=== PATIENT | male | born 1950 | race Caucasian/White ===

== ENCOUNTER 2017-01-17 09:21 | Emergency (ER) | payer MEDICARE ==
[~2017-01-17] VITALS: Ht 185.4 cm; Wt 90.0 kg
[~2017-01-17 09:21] MED LIST: ALBU1.25 NEB; CEFU500T50 PO; DIGO125T PO; DOXY100T PO; GUAI5SYR PO; LOSA25TA5 PO; MOME13HF2 INH; NICO-486 TD; PRED-402 PO; SIMV40TA3 PO; WARF5TAB PO; WARF7.5T PO; [UNRECOGNIZED DRUG - OTHER]
[2017-01-17] MEDS ORDERED: SODIUM CHLORIDE 0.9% 1,000ML IVBOLUS ONE (10:00)
[2017-01-17] MEDS ORDERED: SODIUM CHLORIDE FLUSH 10ML SYR IVF ONE (10:00)
[2017-01-17 10:15] LABS: HEMATOCRIT 40.9 % (39.2-51.8); HEMOGLOBIN 13.7 g/dL (13.7-18.0); WHITE BLOOD COUNT 11.6 x10^3/uL (3.4-10)
[2017-01-17 10:26] LABS: ASPARTATE AMINO TRANSFERASE 14 U/L (15-37); BLOOD UREA NITROGEN 23 mg/dL (7-18)
[2017-01-17 10:32] LABS: IS PT STATUS REG ER OR PRE ER? YES
[2017-01-17 10:45] LABS: DAU SCREEN DISCLAIMER
[2017-01-17 13:29] VITALS: BP 124/78
== END 2017-01-17 14:10 | disposition home or self-care (01) ==
LOC: ED 13:12
DX: I48.2 Chronic atrial fibrillation (principal); Z79.01 Long term (current) use of anticoagulants; F15.121 Other stimulant abuse with intoxication delirium; E78.5 Hyperlipidemia, unspecified; J44.9 Chronic obstructive pulmonary disease, unspecified; Z86.73 Personal history of transient ischemic attack (TIA), and cerebral infarction without residual deficits; Z95.810 Presence of automatic (implantable) cardiac defibrillator
CPT/HCPCS: 36415; 70450; 71010; 80053; 80307; 81003; 82140; 84484; 85025; 93005; 96360; 96361; 99285; J7030; G0479

== ENCOUNTER 2017-08-03 06:11 | Inpatient (IN) | payer MEDICARE ==
[~2017-08-03] VITALS: Ht 172.7 cm; Wt 104.5 kg
[2017-08-03] MEDS ORDERED: LORazepam 2 MG/ML, 1ML ONE ×2 (06:21→07:58)
[2017-08-03] MEDS ORDERED: methylPREDNISolone SOD SUCC 125 MG/2 ML IVP ONE (06:30)
[2017-08-03] MEDS ORDERED: LORazepam 2 MG/ML, 1ML IVPush ONE ×2 (06:30→08:00)
[2017-08-03] MEDS ORDERED: methylPREDNISolone SOD SUCC 125 MG/2 ML ONE (06:30)
[2017-08-03] MEDS ORDERED: SODIUM CHLORIDE FLUSH 10ML SYR IVF ONE (06:30)
[2017-08-03] MEDS ORDERED: DOXY20TA5 PO (06:37)
[2017-08-03] MEDS ORDERED: METO25TA35 PO (06:37)
[2017-08-03] MEDS ORDERED: SIMV5TAB PO (06:37)
[2017-08-03] MEDS ORDERED: TAMS0.4C2 PO (06:37)
[2017-08-03] MEDS ORDERED: OXYGEN (06:37)
[2017-08-03] MEDS ORDERED: ALBUTEROL HFA (06:37)
[2017-08-03] MEDS ORDERED: APIX2.5T PO (06:37)
[2017-08-03] MEDS ORDERED: LOSA25TA5 PO (06:37)
[2017-08-03] MEDS ORDERED: FURO-93 PO (06:37)
[2017-08-03] MEDS ORDERED: ALBUTEROL/IPRATROPIUM 2.5MG/0.5MG, 3 ML ONE (06:52)
[2017-08-03 06:53] LABS: BASOPHILS # (AUTO) 0.05 x10^3/uL (0-0.1); BASOPHILS % (AUTO) 0 % (0-1); EOSINOPHILS # (AUTO) 0.39 x10^3/uL (0-0.4); EOSINOPHILS % (AUTO) 3 % (1-7); LYMPHOCYTES # (AUTO) 1.71 x10^3/uL (1-3.4); LYMPHOCYTES % (AUTO) 15 % (22-44); MD NO; MEAN CORPUSCULAR HEMOGLOBIN 29.2 pg (27.5-34.5); MEAN CORPUSCULAR HGB CONC 32.7 g/dL (33.2-36.2); MEAN CORPUSCULAR VOLUME 89.3 fL (81-97); MEAN PLATELET VOLUME 7.2 fL (7.4-10.4); MONOCYTES # (AUTO) 0.89 x10^3/uL (0.2-0.8); MONOCYTES % (AUTO) 8 % (2-9); NEUTROPHILS # (AUTO) 8.51 x10^3/uL (1.8-6.8); NEUTROPHILS % (AUTO) 74 % (42-75); PLATELET COUNT 296 x10^3/uL (130-400); RED BLOOD COUNT 3.84 x10^6/uL (4.38-5.82); RED CELL DISTRIBUTION WIDTH 16.1 % (9.4-14.8)
[2017-08-03 07:02] LABS: ALANINE AMINOTRANSFERASE 34 U/L (12-78); ALBUMIN 2.4 g/dL (3.4-5.0); ANION GAP 6 mmol/L (5-15); CALCIUM 8.4 mg/dL (8.5-10.1); CHLORIDE 113 mmol/L (98-107); CREATININE 0.92 mg/dL (0.7-1.3)
[2017-08-03 07:06] LABS: ALKALINE PHOSPHATASE 120 U/L (45-117); TOTAL PROTEIN 5.7 g/dL (6.4-8.2); TROPONIN I < 0.015 ng/mL (0.000-0.045)
[2017-08-03] MEDS ORDERED: CEFTRIAXONE PMX 1GM/50ML 50 ML IVPB ONE (07:30)
[2017-08-03] MEDS ORDERED: CEFTRIAXONE PMX 1GM/50ML 50 ML ONE (07:58)
[2017-08-03] MEDS ORDERED: ENALAPRILAT 1.25 MG/ML, 2ML IVPush PRN (09:00)
[2017-08-03] MEDS ORDERED: POLYETHYLENE GLYCOL 17 GM PACKET PO PRN (09:00)
[2017-08-03] MEDS ORDERED: ONDANSETRON ODT 4 MG PO PRN (09:00)
[2017-08-03] MEDS ORDERED: DOXYCYCLINE 100 MG in DEXTROSE 5% 250 ML IV SCH (09:00)
[2017-08-03] MEDS ORDERED: ACETAMINOPHEN 325 MG TABLET PO PRN (09:00)
[2017-08-03] MEDS: ALBUTEROL/IPRATROPIUM 2.5MG/0.5MG, 3 ML NPPB SCH ×4 (10:30→22:39)
[2017-08-03] MEDS ORDERED: OMNIPAQUE 350 MG/ML, 75ML BOTTLE ONE (10:40)
[2017-08-03] MEDS: TAMSULOSIN 0.4 MG CAP.ER.24H PO SCH (11:22)
[2017-08-03] MEDS: METOPROLOL TARTRATE 25 MG TABLET PO SCH (11:22)
[2017-08-03] MEDS: DIGOXIN 0.125 MG TABLET PO SCH (11:22)
[2017-08-03] MEDS: LOSARTAN 25MG TABLET PO SCH (11:22)
[2017-08-03] MEDS: SENNA/DOCUSATE TABLET PO SCH (11:23)
[2017-08-03] MEDS: methylPREDNISolone SOD SUCC 125 MG/2 ML IVPush SCH ×3 (11:23→22:33)
[2017-08-03 12:29] LABS: MICROSCOPIC NOT IND
[2017-08-03 12:33] LABS: CULTURE INDICATED? NO
[2017-08-03] MEDS: DOXYCYCLINE 100 MG in DEXTROSE 5% 250 ML IV SCH (12:39)
[2017-08-03 12:53] VITALS: BP 140/77
[2017-08-03] MEDS ORDERED: SODIUM CHLORIDE 0.45% 1,000 ML IV SCH (14:00)
[2017-08-03] MEDS ORDERED: FENTANYL PF 2,500 MCG in SODIUM CHLORIDE 0.9% 200 ML IV PRN (17:30)
[2017-08-03] MEDS: CEFTRIAXONE PMX 1GM/50ML 50 ML IV SCH (21:06)
[2017-08-03] MEDS: SIMVASTATIN 5 MG TABLET PO SCH (21:07)
[2017-08-04] MEDS: DOXYCYCLINE 100 MG in DEXTROSE 5% 250 ML IV SCH ×2 (00:31→14:07)
[2017-08-04 04:00] VITALS: BP 126/62
[2017-08-04] MEDS: ALBUTEROL/IPRATROPIUM 2.5MG/0.5MG, 3 ML NPPB SCH ×6 (04:13→22:30)
[2017-08-04 04:41] LABS: BASOPHILS % (AUTO) 0 % (0-1); EOSINOPHILS % (AUTO) 0 % (1-7); LYMPHOCYTES # (AUTO) 0.81 x10^3/uL (1-3.4); LYMPHOCYTES % (AUTO) 6 % (22-44); MD NO; MEAN CORPUSCULAR HEMOGLOBIN 28.8 pg (27.5-34.5); MEAN CORPUSCULAR HGB CONC 32.5 g/dL (33.2-36.2); MEAN CORPUSCULAR VOLUME 88.8 fL (81-97); MEAN PLATELET VOLUME 7.4 fL (7.4-10.4); MONOCYTES # (AUTO) 0.48 x10^3/uL (0.2-0.8); MONOCYTES % (AUTO) 4 % (2-9); NEUTROPHILS # (AUTO) 12.58 x10^3/uL (1.8-6.8); NEUTROPHILS % (AUTO) 91 % (42-75); PLATELET COUNT 275 x10^3/uL (130-400); RED BLOOD COUNT 3.46 x10^6/uL (4.38-5.82); RED CELL DISTRIBUTION WIDTH 16.1 % (9.4-14.8)
[2017-08-04 04:52] LABS: ALBUMIN 2.3 g/dL (3.4-5.0); ANION GAP 5 mmol/L (5-15); CALCIUM 8.4 mg/dL (8.5-10.1); CHLORIDE 110 mmol/L (98-107); CREATININE 0.87 mg/dL (0.7-1.3)
[2017-08-04 04:55] LABS: ALANINE AMINOTRANSFERASE 28 U/L (12-78); ALKALINE PHOSPHATASE 109 U/L (45-117); BILIRUBIN,TOTAL 0.8 mg/dL (0.2-1.0); TOTAL PROTEIN 5.5 g/dL (6.4-8.2)
[2017-08-04] MEDS: methylPREDNISolone SOD SUCC 125 MG/2 ML IVPush SCH (05:15)
[2017-08-04] MEDS: TAMSULOSIN 0.4 MG CAP.ER.24H PO SCH (08:22)
[2017-08-04] MEDS: DIGOXIN 0.125 MG TABLET PO SCH (08:23)
[2017-08-04] MEDS: SENNA/DOCUSATE TABLET PO SCH (08:23)
[2017-08-04] MEDS: METOPROLOL TARTRATE 25 MG TABLET PO SCH (08:23)
[2017-08-04] MEDS: LOSARTAN 25MG TABLET PO SCH (08:23)
[2017-08-04 12:05] VITALS: BP 144/73
[2017-08-04] MEDS: methylPREDNISolone SOD SUCC 40 MG/ML IVPush SCH ×2 (14:07→21:37)
[2017-08-04 19:18] VITALS: BP 140/66
[2017-08-04] MEDS: CEFTRIAXONE PMX 1GM/50ML 50 ML IV SCH (21:37)
[2017-08-04] MEDS: SIMVASTATIN 5 MG TABLET PO SCH (21:37)
[2017-08-05 01:07] VITALS: BP 165/81
[2017-08-05] MEDS: ALBUTEROL/IPRATROPIUM 2.5MG/0.5MG, 3 ML NPPB SCH ×6 (01:55→22:00)
[2017-08-05] MEDS: DOXYCYCLINE 100 MG in DEXTROSE 5% 250 ML IV SCH ×2 (02:56→14:10)
[2017-08-05] MEDS: methylPREDNISolone SOD SUCC 40 MG/ML IVPush SCH ×3 (05:38→21:36)
[2017-08-05 06:57] VITALS: BP 145/86
[2017-08-05 07:11] LABS: BASOPHILS # (AUTO) 0.01 x10^3/uL (0-0.1); BASOPHILS % (AUTO) 0 % (0-1); EOSINOPHILS % (AUTO) 0 % (1-7); LYMPHOCYTES # (AUTO) 1.28 x10^3/uL (1-3.4); LYMPHOCYTES % (AUTO) 8 % (22-44); MD NO; MEAN CORPUSCULAR HEMOGLOBIN 28.6 pg (27.5-34.5); MEAN CORPUSCULAR HGB CONC 32.1 g/dL (33.2-36.2); MEAN CORPUSCULAR VOLUME 89.2 fL (81-97); MEAN PLATELET VOLUME 7.2 fL (7.4-10.4); MONOCYTES # (AUTO) 0.68 x10^3/uL (0.2-0.8); MONOCYTES % (AUTO) 4 % (2-9); NEUTROPHILS # (AUTO) 13.43 x10^3/uL (1.8-6.8); NEUTROPHILS % (AUTO) 87 % (42-75); PLATELET COUNT 322 x10^3/uL (130-400); RED BLOOD COUNT 3.63 x10^6/uL (4.38-5.82); RED CELL DISTRIBUTION WIDTH 17.5 % (9.4-14.8)
[2017-08-05 07:20] LABS: ALBUMIN 2.6 g/dL (3.4-5.0); ANION GAP 7 mmol/L (5-15); CALCIUM 8.9 mg/dL (8.5-10.1); CHLORIDE 109 mmol/L (98-107); CREATININE 0.88 mg/dL (0.7-1.3)
[2017-08-05] MEDS: LOSARTAN 25MG TABLET PO SCH (08:04)
[2017-08-05] MEDS: DIGOXIN 0.125 MG TABLET PO SCH (08:04)
[2017-08-05] MEDS: METOPROLOL TARTRATE 25 MG TABLET PO SCH (08:04)
[2017-08-05] MEDS: TAMSULOSIN 0.4 MG CAP.ER.24H PO SCH (08:04)
[2017-08-05] MEDS: SENNA/DOCUSATE TABLET PO SCH (08:04)
[2017-08-05 08:24] LABS: TOTAL PROTEIN 5.9 g/dL (6.4-8.2)
[2017-08-05] MEDS: FORMOTEROL INH SCH (12:00)
[2017-08-05] MEDS: MOMETASONE INH SCH (12:00)
[2017-08-05] MEDS: FUROSEMIDE 20 MG TABLET PO SCH (12:20)
[2017-08-05 13:23] VITALS: BP 150/79
[2017-08-05 19:16] VITALS: BP 149/87
[2017-08-05] MEDS: CEFTRIAXONE PMX 1GM/50ML 50 ML IV SCH (21:36)
[2017-08-05] MEDS: SIMVASTATIN 5 MG TABLET PO SCH (21:36)
[2017-08-05] MEDS: LORazepam 2 MG/ML, 1ML IVPush PRN (21:37)
[2017-08-06 00:22] VITALS: BP 164/77
[2017-08-06] MEDS: DOXYCYCLINE 100 MG in DEXTROSE 5% 250 ML IV SCH ×2 (02:15→14:45)
[2017-08-06] MEDS: ALBUTEROL/IPRATROPIUM 2.5MG/0.5MG, 3 ML NPPB SCH ×6 (02:35→22:00)
[2017-08-06 05:17] LABS: ALBUMIN 2.6 g/dL (3.4-5.0); ANION GAP 6 mmol/L (5-15); CALCIUM 8.9 mg/dL (8.5-10.1); CHLORIDE 108 mmol/L (98-107)
[2017-08-06 05:19] LABS: CREATININE 0.85 mg/dL (0.7-1.3)
[2017-08-06 05:25] LABS: MEAN CORPUSCULAR HEMOGLOBIN 29.6 pg (27.5-34.5); MEAN CORPUSCULAR HGB CONC 33.3 g/dL (33.2-36.2); MEAN CORPUSCULAR VOLUME 88.9 fL (81-97); MEAN PLATELET VOLUME 8.1 fL (7.4-10.4); PLATELET COUNT 256 x10^3/uL (130-400); RED BLOOD COUNT 3.52 x10^6/uL (4.38-5.82); RED CELL DISTRIBUTION WIDTH 16.9 % (9.4-14.8)
[2017-08-06] MEDS: methylPREDNISolone SOD SUCC 40 MG/ML IVPush SCH ×3 (05:30→21:20)
[2017-08-06 05:52] LABS: BASOPHILS # (AUTO) 0.06 x10^3/uL (0-0.1); BASOPHILS % (AUTO) 0 % (0-1); EOSINOPHILS % (AUTO) 0 % (1-7); LYMPHOCYTES # (AUTO) 0.96 x10^3/uL (1-3.4); LYMPHOCYTES % (AUTO) 7 % (22-44); MD SCAN; MONOCYTES # (AUTO) 0.44 x10^3/uL (0.2-0.8); MONOCYTES % (AUTO) 3 % (2-9); NEUTROPHILS # (AUTO) 12.74 x10^3/uL (1.8-6.8); NEUTROPHILS % (AUTO) 90 % (42-75)
[2017-08-06] MEDS ORDERED: GLUCAGON 1 MG IM PRN (06:00)
[2017-08-06] MEDS ORDERED: DEXTROSE 50%, 50ML SYRINGE IVPush PRN (06:00)
[2017-08-06] MEDS ORDERED: DEXTROSE 4 GM TAB.CHEW PO PRN (06:00)
[2017-08-06 06:24] LABS: HEMOGLOBIN A1C 6.9 % (4.2-6.3)
[2017-08-06 06:49] VITALS: BP 166/89
[2017-08-06] MEDS: LOSARTAN 25MG TABLET PO SCH (08:46)
[2017-08-06] MEDS: INSULIN LISPRO 100 UNITS/ML, PEN SQ-INSULIN SCH ×4 (08:46→21:35)
[2017-08-06] MEDS: APIXABAN 2.5 MG TABLET PO SCH ×2 (08:46→21:21)
[2017-08-06] MEDS: TAMSULOSIN 0.4 MG CAP.ER.24H PO SCH (08:46)
[2017-08-06] MEDS: FUROSEMIDE 20 MG TABLET PO SCH (08:46)
[2017-08-06] MEDS: SENNA/DOCUSATE TABLET PO SCH (08:47)
[2017-08-06] MEDS: METOPROLOL TARTRATE 25 MG TABLET PO SCH (08:47)
[2017-08-06] MEDS: DIGOXIN 0.125 MG TABLET PO SCH (08:47)
[2017-08-06] MEDS: SODIUM CHLORIDE FLUSH 10ML SYR IVF SCH ×2 (08:48→21:00)
[2017-08-06] MEDS: FORMOTEROL INH SCH (09:00)
[2017-08-06] MEDS: MOMETASONE INH SCH (09:00)
[2017-08-06 12:36] VITALS: BP 157/83
[2017-08-06 19:01] VITALS: BP 144/79
[2017-08-06] MEDS: CEFTRIAXONE PMX 1GM/50ML 50 ML IV SCH (21:21)
[2017-08-06] MEDS: SIMVASTATIN 5 MG TABLET PO SCH (21:21)
[2017-08-07 00:46] VITALS: BP 155/108
[2017-08-07] MEDS: DOXYCYCLINE 100 MG in DEXTROSE 5% 250 ML IV SCH (01:29)
[2017-08-07] MEDS: methylPREDNISolone SOD SUCC 40 MG/ML IVPush SCH (05:11)
[2017-08-07 05:14] LABS: MEAN CORPUSCULAR HEMOGLOBIN 29.3 pg (27.5-34.5); MEAN CORPUSCULAR HGB CONC 32.8 g/dL (33.2-36.2); MEAN CORPUSCULAR VOLUME 89.4 fL (81-97); MEAN PLATELET VOLUME 7.6 fL (7.4-10.4); PLATELET COUNT 307 x10^3/uL (130-400); RED BLOOD COUNT 3.77 x10^6/uL (4.38-5.82)
[2017-08-07 05:15] LABS: ALBUMIN 2.6 g/dL (3.4-5.0); ANION GAP 6 mmol/L (5-15); CALCIUM 8.7 mg/dL (8.5-10.1); CHLORIDE 105 mmol/L (98-107)
[2017-08-07 05:18] LABS: CREATININE 1.02 mg/dL (0.7-1.3)
[2017-08-07 05:39] LABS: MD YES
[2017-08-07 05:41] LABS: ANISOCYTOSIS 1+; BAND#(MANUAL) 0.26 x10^3/uL; BANDS%(MANUAL) 2 % (0-7); LYMPHS% (MANUAL) 7 % (22-44); MONOS#(MANUAL) 0.77 x10^3/uL (0.3-2.7); MONOS% (MANUAL) 6 % (2-9); MYELOCYTES# (MANUAL) 0.13 x10^3/uL (0-0); MYELOCYTES% (MANUAL) 1 % (0-0); OVALOCYTES 1+; POLYCHROMASIA 1+; SEG#(MANUAL) 10.84 x10^3/uL (1.8-6.8); SEGS% (MANUAL) 84 % (42-75)
[2017-08-07 05:42] LABS: <PLATELET ESTIMATE> ADEQUATE; <PLT MORPHOLOGY> NORMAL PLT MORPH
[2017-08-07 05:53] LABS: BASOPHILS % (AUTO) 0 % (0-1); EOSINOPHILS % (AUTO) 0 % (1-7); LYMPHOCYTES # (AUTO) 1.16 x10^3/uL (1-3.4); LYMPHOCYTES % (AUTO) 9 % (22-44); MONOCYTES # (AUTO) 0.86 x10^3/uL (0.2-0.8); MONOCYTES % (AUTO) 7 % (2-9); NEUTROPHILS # (AUTO) 10.91 x10^3/uL (1.8-6.8); NEUTROPHILS % (AUTO) 84 % (42-75)
[2017-08-07] MEDS: ALBUTEROL/IPRATROPIUM 2.5MG/0.5MG, 3 ML NPPB SCH ×2 (06:00→10:00)
[2017-08-07 06:56] VITALS: BP 163/86
[2017-08-07] MEDS: LORazepam 2 MG/ML, 1ML IVPush PRN (08:20)
[2017-08-07] MEDS: FUROSEMIDE 20 MG TABLET PO SCH (08:21)
[2017-08-07] MEDS: TAMSULOSIN 0.4 MG CAP.ER.24H PO SCH (08:22)
[2017-08-07] MEDS: APIXABAN 2.5 MG TABLET PO SCH (08:22)
[2017-08-07] MEDS: DIGOXIN 0.125 MG TABLET PO SCH (08:22)
[2017-08-07] MEDS: SODIUM CHLORIDE FLUSH 10ML SYR IVF SCH (08:23)
[2017-08-07] MEDS: METOPROLOL TARTRATE 25 MG TABLET PO SCH (08:28)
[2017-08-07] MEDS: LOSARTAN 25MG TABLET PO SCH (08:29)
[2017-08-07] MEDS: MOMETASONE INH SCH (08:33)
[2017-08-07] MEDS: INSULIN LISPRO 100 UNITS/ML, PEN SQ-INSULIN SCH (08:33)
[2017-08-07] MEDS: FORMOTEROL INH SCH (08:33)
[2017-08-07] MEDS: SENNA/DOCUSATE TABLET PO SCH (08:34)
== END 2017-08-07 12:16 | disposition left against medical advice (07) | DRG 871 ==
LOC: ED 07:25 → CCU 07:26 → ED 08:10 → 3NE 08-04 11:39
PROVIDERS: ADMIT Internal Medicine; ATTEND Internal Medicine
PROC: 0W9B3ZZ Drainage of Left Pleural Cavity, Percutaneous Approach (ICD-10-PCS; principal; 2017-08-03)
PROC: 5A09357 Assistance with Respiratory Ventilation, Less than 24 Consecutive Hours, Continuous Positive Airway Pressure (ICD-10-PCS; 2017-08-03)
DX: A41.9 Sepsis, unspecified organism (principal); J96.21 Acute and chronic respiratory failure with hypoxia; G93.41 Metabolic encephalopathy; J15.9 Unspecified bacterial pneumonia; J90 Pleural effusion, not elsewhere classified; J44.1 Chronic obstructive pulmonary disease with (acute) exacerbation; D68.69 Other thrombophilia; I42.9 Cardiomyopathy, unspecified; J44.0 Chronic obstructive pulmonary disease with (acute) lower respiratory infection; J98.11 Atelectasis; I50.9 Heart failure, unspecified; E78.5 Hyperlipidemia, unspecified; D64.9 Anemia, unspecified; E11.9 Type 2 diabetes mellitus without complications; I11.0 Hypertensive heart disease with heart failure; I34.0 Nonrheumatic mitral (valve) insufficiency; I48.2 Chronic atrial fibrillation; N40.0 Benign prostatic hyperplasia without lower urinary tract symptoms; R65.20 Severe sepsis without septic shock; F17.200 Nicotine dependence, unspecified, uncomplicated; Z79.01 Long term (current) use of anticoagulants; Z82.49 Family history of ischemic heart disease and other diseases of the circulatory system; Z86.73 Personal history of transient ischemic attack (TIA), and cerebral infarction without residual deficits; Z95.810 Presence of automatic (implantable) cardiac defibrillator; Z99.81 Dependence on supplemental oxygen
CPT/HCPCS: 32555; 36415; 36600; 70450; 71045; 71260; 80048; 80053; 80162; 81003; 82040; 82042; 82803; 82945; 82962; 83036; 83605; 83615; 83986; 84155; 84157; 84484; 85025; 87040; 87070; 87081; 87205; 88112; 88305; 89051; 93005; 93306; 94640; 94660; 96365; 96375; 96376; J0696; J7060; J7620; Q9967; J1815; J2060; J2920; J2930

== ENCOUNTER 2017-12-29 13:58 | Inpatient (IN) | payer MEDICAID, MEDICARE ==
[~2017-12-29] VITALS: Ht 177.8 cm; Wt 90.1 kg
[~2017-12-29 13:58] MED LIST changes: +ALBUTEROL HFA; +APIX2.5T PO; +CEFD300C37 PO; +DOXY20TA5 PO; +FURO-93 PO; -LOSA25TA5 PO; +LOSA25TA6 PO; +METO25TA35 PO; +OXYGEN; +PRED20TA PO; +SIMV5TAB PO; +TAMS0.4C2 PO
[2017-12-29 14:29] LABS: BASOPHILS # (AUTO) 0.04 x10^3/uL (0-0.1); BASOPHILS % (AUTO) 0 % (0-1); EOSINOPHILS # (AUTO) 0.14 x10^3/uL (0-0.4); EOSINOPHILS % (AUTO) 1 % (1-7); LYMPHOCYTES % (AUTO) 22 % (22-44); MD NO; MEAN CORPUSCULAR HEMOGLOBIN 29.2 pg (27.5-34.5); MEAN CORPUSCULAR HGB CONC 33.3 g/dL (33.2-36.2); MEAN CORPUSCULAR VOLUME 87.7 fL (81-97); MEAN PLATELET VOLUME 8.6 fL (7.4-10.4); MONOCYTES # (AUTO) 1.04 x10^3/uL (0.2-0.8); MONOCYTES % (AUTO) 8 % (2-9); NEUTROPHILS # (AUTO) 8.67 x10^3/uL (1.8-6.8); NEUTROPHILS % (AUTO) 68 % (42-75); PLATELET COUNT 175 x10^3/uL (130-400); RED BLOOD COUNT 5.32 x10^6/uL (4.38-5.82); RED CELL DISTRIBUTION WIDTH 15.4 % (9.4-14.8)
[2017-12-29 14:41] LABS: ALBUMIN 3.7 g/dL (3.4-5.0); ANION GAP 7 mmol/L (5-15); CALCIUM 8.8 mg/dL (8.5-10.1); CHLORIDE 109 mmol/L (98-107)
[2017-12-29] MEDS ORDERED: LORazepam 2 MG/ML, 1ML ONE (14:56)
[2017-12-29] MEDS ORDERED: methylPREDNISolone SOD SUCC 125 MG/2 ML ONE (14:57)
[2017-12-29] MEDS ORDERED: SODIUM CHLORIDE FLUSH 10ML SYR IVF ONE (15:00)
[2017-12-29] MEDS ORDERED: LORazepam 2 MG/ML, 1ML IVPush ONE (15:00)
[2017-12-29] MEDS ORDERED: methylPREDNISolone SOD SUCC 125 MG/2 ML IVP ONE (15:00)
[2017-12-29] MEDS ORDERED: ALBUTEROL/IPRATROPIUM 2.5MG/0.5MG, 3 ML ONE (15:09)
[2017-12-29] MEDS ORDERED: AZITHROMYCIN 500 MG in SODIUM CHLORIDE 0.9% 250 ML IV ONE (16:00)
[2017-12-29] MEDS ORDERED: MOMETASONE INH SCH (16:30)
[2017-12-29] MEDS ORDERED: TEMPLATE NON-FORMULARY MED. (Albuterol Sulfate (Albuterol Sulfate**) 1 VIAL) NEB PRN (16:30)
[2017-12-29] MEDS ORDERED: morphine SULFATE 10 MG/ML, 1ML IVPush PRN (16:30)
[2017-12-29] MEDS ORDERED: ACETAMINOPHEN 325 MG TABLET PO PRN (16:30)
[2017-12-29] MEDS ORDERED: FORMOTEROL INH SCH (16:30)
[2017-12-29] MEDS: SODIUM CHLORIDE 0.9% 1,000 ML IV SCH (17:40)
[2017-12-29] MEDS: ALBUTEROL/IPRATROPIUM 2.5MG/0.5MG, 3 ML NPPB SCH ×2 (19:10→22:00)
[2017-12-29 19:12] VITALS: BP 128/66
[2017-12-29] MEDS ORDERED: SIMVASTATIN 5 MG TABLET PO SCH (21:00)
[2017-12-29] MEDS: methylPREDNISolone SOD SUCC 125 MG/2 ML IVPush SCH (21:39)
[2017-12-29] MEDS: APIXABAN 2.5 MG TABLET PO SCH (21:39)
[2017-12-30 01:15] VITALS: BP 134/72
[2017-12-30] MEDS: methylPREDNISolone SOD SUCC 125 MG/2 ML IVPush SCH ×2 (03:52→09:14)
[2017-12-30 05:00] LABS: RAPID INFLUENZA A Negative (Negative); RAPID INFLUENZA B Negative (Negative)
[2017-12-30] MEDS: SODIUM CHLORIDE 0.9% 1,000 ML IV SCH (05:35)
[2017-12-30] MEDS: ALBUTEROL/IPRATROPIUM 2.5MG/0.5MG, 3 ML NPPB SCH (07:13)
[2017-12-30 07:33] VITALS: BP 156/71
[2017-12-30] MEDS ORDERED: METH4TAB2 PO (08:39)
[2017-12-30] MEDS ORDERED: LOSARTAN 25MG TABLET PO SCH (09:00)
[2017-12-30] MEDS ORDERED: DIGOXIN 0.125 MG TABLET PO SCH (09:00)
[2017-12-30] MEDS ORDERED: METOPROLOL TARTRATE 25 MG TABLET PO SCH (09:00)
[2017-12-30] MEDS ORDERED: FUROSEMIDE 20 MG TABLET PO SCH (09:00)
[2017-12-30] MEDS ORDERED: TAMSULOSIN 0.4 MG CAP.ER.24H PO SCH (09:00)
[2017-12-30] MEDS: APIXABAN 2.5 MG TABLET PO SCH (09:14)
== END 2017-12-30 11:00 | disposition home or self-care (01) | DRG 189 ==
LOC: ED 15:45 → EDIP 15:53 → ED 16:07 → SUATTDRO 16:14 → 3NE 16:31 → DCLOUNGE 12-30 10:20
PROVIDERS: ADMIT Internal Medicine; ATTEND Internal Medicine
DX: J96.21 Acute and chronic respiratory failure with hypoxia (principal); J98.11 Atelectasis; D68.69 Other thrombophilia; I50.42 Chronic combined systolic (congestive) and diastolic (congestive) heart failure; J44.1 Chronic obstructive pulmonary disease with (acute) exacerbation; I48.2 Chronic atrial fibrillation; F17.210 Nicotine dependence, cigarettes, uncomplicated; J44.9 Chronic obstructive pulmonary disease, unspecified; Z86.73 Personal history of transient ischemic attack (TIA), and cerebral infarction without residual deficits; N40.0 Benign prostatic hyperplasia without lower urinary tract symptoms; Z82.49 Family history of ischemic heart disease and other diseases of the circulatory system; Z99.81 Dependence on supplemental oxygen; Z95.810 Presence of automatic (implantable) cardiac defibrillator
CPT/HCPCS: 36415; 71045; 80048; 82040; 83880; 85025; 87400; 93005; 94640; 96374; 96375; 99291; G0378; J0456; J7620; J2060; J2930; J7030; J7050

== ENCOUNTER 2018-04-17 19:31 | Inpatient (IN) | payer MEDICARE ==
[~2018-04-17] VITALS: Ht 177.8 cm; Wt 101.2 kg
[~2018-04-17 19:31] MED LIST changes: +LOSA25TA25 PO; -LOSA25TA6 PO; +METH4TAB2 PO
--- NOTE | 2018-04-17 20:00 | NUR ---
PT PLACED ON HEART MONITOR, BP CUFF, PULSE OX. PT IN NAD AT THIS TIME, ABLE TO SPEAK IN FULL SENTENCES. CALL LIGHT WITHIN REACH.
[2018-04-17] MEDS ORDERED: methylPREDNISolone SOD SUCC 125 MG/2 ML IVP ONE (21:00)
[2018-04-17] MEDS ORDERED: ALBUTEROL/IPRATROPIUM 2.5MG/0.5MG, 3 ML NPPB SCH (21:00)
[2018-04-17] MEDS ORDERED: ALBUTEROL SULFATE 2.5 MG/3 ML ONE (21:03)
[2018-04-17] MEDS ORDERED: methylPREDNISolone SOD SUCC 125 MG/2 ML ONE (21:06)
--- NOTE | 2018-04-17 21:13 | NUR ---
PT BACK FROM XRAY. PT MEDICATED PER ERP ORDER. VSS AT THIS TIME.
[2018-04-17] MEDS ORDERED: ALBUTEROL SULFATE 2.5 MG/3 ML NPPB PRN (21:30)
[2018-04-17 21:34] LABS: MEAN CORPUSCULAR HEMOGLOBIN 30.2 pg (27.5-34.5); MEAN CORPUSCULAR HGB CONC 33.4 g/dL (33.2-36.2); MEAN CORPUSCULAR VOLUME 90.5 fL (81-97); MEAN PLATELET VOLUME 8.3 fL (7.4-10.4); PLATELET COUNT 215 x10^3/uL (130-400); RED BLOOD COUNT 4.93 x10^6/uL (4.38-5.82); RED CELL DISTRIBUTION WIDTH 14.3 % (9.4-14.8)
[2018-04-17 21:41] LABS: MD YES
[2018-04-17 21:43] LABS: ANION GAP 7 mmol/L (5-15); CALCIUM 8.9 mg/dL (8.5-10.1); CHLORIDE 112 mmol/L (98-107)
[2018-04-17 21:48] LABS: CREATININE 1.08 mg/dL (0.7-1.3)
--- NOTE | 2018-04-17 21:59 | NUR ---
LAB IN TO DRAW BC X 2. ANTIBIOTICS ORDERED.
[2018-04-17] MEDS ORDERED: AZITHROMYCIN 500 MG in SODIUM CHLORIDE 0.9% 250 ML IV ONE (22:00)
[2018-04-17] MEDS ORDERED: CEFTRIAXONE PMX 1GM/50ML 50 ML IV ONE (22:00)
[2018-04-17] MEDS ORDERED: CEFTRIAXONE PMX 1GM/50ML 50 ML ONE (22:19)
--- NOTE | 2018-04-17 22:25 | NUR ---
ANTIBIOTIC INFUSING AFTER VERIFICATION OF BC X 2 DRAWN PRIOR. PT GIVEN SNACK PER REQUEST AFTER OK FROM ERP. VSS, UPDATED IN COMPUTER. MED REC COMPLETED.
[2018-04-17 22:38] LABS: BAND#(MANUAL) 0.15 x10^3/uL; BANDS%(MANUAL) 1 % (0-7); EOS#(MANUAL) 0.29 x10^3/uL (0.0-0.4); EOS% (MANUAL) 2 % (1-7); LYMPH#(MANUAL) 3.65 x10^3/uL (1-3.4); LYMPHS% (MANUAL) 25 % (22-44); MONOS#(MANUAL) 1.61 x10^3/uL (0.3-2.7); MONOS% (MANUAL) 11 % (2-9); REACTIVE LYMPHS # (MANUAL) 0.44 x10^3/uL (0-0); REACTIVE LYMPHS % (MANUAL) 3 % (0-0); SEG#(MANUAL) 8.47 x10^3/uL (1.8-6.8); SEGS% (MANUAL) 58 % (42-75)
[2018-04-17 22:39] LABS: ANISOCYTOSIS 1+
[2018-04-17 22:40] LABS: <PLATELET ESTIMATE> ADEQUATE; <PLT MORPHOLOGY> NORMAL PLT MORPH; OVALOCYTES 1+; POLYCHROMASIA 1+
--- NOTE | 2018-04-17 23:15 | NUR ---
REPORT TO JEFFREY CHURCH.
[2018-04-17] MEDS ORDERED: SODIUM CHLORIDE FLUSH 10ML SYR IVF PRN (23:30)
--- NOTE | 2018-04-17 23:30 | NUR ---
REPORT FROM RANJIT PEREYRA. SECOND ABX INITIATED. BC X2 DRAWN PRIOR TO ADMIN. BP/SPO2/ECG MONITORING IN PLACE. NSR ON MONITOR. PT ANXIOUS, INCREASED RR W/ FORCED INSPIRATION. PT TALKATIVE, REPORTS 'THIS IS NORMAL'. SPO2 >90% ON BASELINE 4L O2 BY NC.
[2018-04-18] MEDS ORDERED: ACETAMINOPHEN 325 MG TABLET PO PRN
[2018-04-18] MEDS ORDERED: hydrALAzine 20 MG/ML, 1ML IVPush PRN
[2018-04-18 00:25] VITALS: BP 122/61
[2018-04-18 00:40] LABS: TROPONIN I < 0.015 ng/mL (0.000-0.045)
[2018-04-18 01:13] VITALS: BP 137/77
[2018-04-18 01:43] LABS: BASOPHILS # (AUTO) 0.05 x10^3/uL (0-0.1); BASOPHILS % (AUTO) 0 % (0-1); EOSINOPHILS # (AUTO) 0.02 x10^3/uL (0-0.4); EOSINOPHILS % (AUTO) 0 % (1-7); LYMPHOCYTES # (AUTO) 1.02 x10^3/uL (1-3.4); LYMPHOCYTES % (AUTO) 8 % (22-44); MD NO; MEAN CORPUSCULAR HEMOGLOBIN 30.2 pg (27.5-34.5); MEAN CORPUSCULAR HGB CONC 33.3 g/dL (33.2-36.2); MEAN CORPUSCULAR VOLUME 90.5 fL (81-97); MEAN PLATELET VOLUME 8.4 fL (7.4-10.4); MONOCYTES # (AUTO) 0.19 x10^3/uL (0.2-0.8); MONOCYTES % (AUTO) 1 % (2-9); NEUTROPHILS % (AUTO) 90 % (42-75); PLATELET COUNT 196 x10^3/uL (130-400); RED BLOOD COUNT 4.79 x10^6/uL (4.38-5.82); RED CELL DISTRIBUTION WIDTH 14.5 % (9.4-14.8)
[2018-04-18 01:54] LABS: ANION GAP 7 mmol/L (5-15); CHLORIDE 109 mmol/L (98-107); CREATININE 1.27 mg/dL (0.7-1.3)
[2018-04-18] MEDS: methylPREDNISolone SOD SUCC 40 MG/ML IVPush SCH ×5 (02:02→23:31)
[2018-04-18] MEDS: LEVOFLOXACIN/PMX 750MG/150ML 150 ML IV SCH ×2 (02:03→23:31)
[2018-04-18] MEDS: ALBUTEROL/IPRATROPIUM 2.5MG/0.5MG, 3 ML NPPB SCH ×3 (07:04→19:08)
[2018-04-18 07:51] LABS: ALBUMIN 3.7 g/dL (3.4-5.0); ANION GAP 7 mmol/L (5-15); CALCIUM 8.8 mg/dL (8.5-10.1); CHLORIDE 109 mmol/L (98-107); CREATININE 1.16 mg/dL (0.7-1.3)
[2018-04-18] MEDS: METOPROLOL TARTRATE 25 MG TABLET PO SCH (08:12)
[2018-04-18] MEDS: APIXABAN 2.5 MG TABLET PO SCH ×2 (08:12→20:35)
[2018-04-18] MEDS: LOSARTAN 25MG TABLET PO SCH (08:12)
[2018-04-18] MEDS: TAMSULOSIN 0.4 MG CAP.ER.24H PO SCH (08:12)
[2018-04-18] MEDS: FUROSEMIDE 20 MG/2 ML IV SCH ×2 (08:12→18:22)
[2018-04-18] MEDS: DIGOXIN 0.125 MG TABLET PO SCH (08:12)
[2018-04-18 08:35] VITALS: BP 130/66
[2018-04-18 13:44] VITALS: BP 131/64
[2018-04-18] MEDS ORDERED: POLYETHYLENE GLYCOL 17 GM PACKET PO PRN (16:30)
[2018-04-18] MEDS: SODIUM CHLORIDE 0.9% 1,000 ML IV SCH (18:22)
[2018-04-18 19:45] VITALS: BP 137/57
[2018-04-18] MEDS: SIMVASTATIN 5 MG TABLET PO SCH (20:35)
[2018-04-19 01:35] VITALS: BP 137/74
[2018-04-19 05:10] LABS: BASOPHILS # (AUTO) 0.07 x10^3/uL (0-0.1); BASOPHILS % (AUTO) 0 % (0-1); EOSINOPHILS % (AUTO) 0 % (1-7); LYMPHOCYTES # (AUTO) 1.34 x10^3/uL (1-3.4); LYMPHOCYTES % (AUTO) 8 % (22-44); MD NO; MEAN CORPUSCULAR HEMOGLOBIN 29.8 pg (27.5-34.5); MEAN CORPUSCULAR HGB CONC 32.8 g/dL (33.2-36.2); MEAN PLATELET VOLUME 8.3 fL (7.4-10.4); MONOCYTES # (AUTO) 0.68 x10^3/uL (0.2-0.8); MONOCYTES % (AUTO) 4 % (2-9); NEUTROPHILS # (AUTO) 15.83 x10^3/uL (1.8-6.8); NEUTROPHILS % (AUTO) 88 % (42-75); PLATELET COUNT 187 x10^3/uL (130-400); RED BLOOD COUNT 4.54 x10^6/uL (4.38-5.82); RED CELL DISTRIBUTION WIDTH 14.4 % (9.4-14.8)
[2018-04-19 05:18] LABS: ALBUMIN 3.5 g/dL (3.4-5.0); ANION GAP 7 mmol/L (5-15); CALCIUM 8.7 mg/dL (8.5-10.1); CHLORIDE 108 mmol/L (98-107); CREATININE 1.02 mg/dL (0.7-1.3)
[2018-04-19] MEDS: methylPREDNISolone SOD SUCC 40 MG/ML IVPush SCH (05:44)
[2018-04-19] MEDS: ALBUTEROL/IPRATROPIUM 2.5MG/0.5MG, 3 ML NPPB SCH ×4 (06:35→20:20)
[2018-04-19 07:14] VITALS: BP 125/53
[2018-04-19] MEDS: SODIUM CHLORIDE 0.9% 1,000 ML IV SCH ×2 (07:28→17:14)
[2018-04-19] MEDS: FUROSEMIDE 20 MG/2 ML IV SCH (07:40)
[2018-04-19] MEDS: LOSARTAN 25MG TABLET PO SCH (08:42)
[2018-04-19] MEDS: TAMSULOSIN 0.4 MG CAP.ER.24H PO SCH (08:43)
[2018-04-19] MEDS: DIGOXIN 0.125 MG TABLET PO SCH (08:43)
[2018-04-19] MEDS: APIXABAN 2.5 MG TABLET PO SCH ×2 (08:43→20:46)
[2018-04-19] MEDS: METOPROLOL TARTRATE 25 MG TABLET PO SCH (08:43)
[2018-04-19 14:37] VITALS: BP 101/49
[2018-04-19] MEDS: SIMVASTATIN 5 MG TABLET PO SCH (20:46)
[2018-04-19 21:09] VITALS: BP 142/64
[2018-04-19] MEDS: LEVOFLOXACIN/PMX 750MG/150ML 150 ML IV SCH (23:55)
[2018-04-20] MEDS: SODIUM CHLORIDE 0.9% 1,000 ML IV SCH (02:52)
[2018-04-20 03:00] VITALS: BP 129/69
[2018-04-20 03:21] VITALS: BP 145/81
[2018-04-20 05:47] LABS: MEAN CORPUSCULAR HEMOGLOBIN 29.4 pg (27.5-34.5); MEAN CORPUSCULAR HGB CONC 32.4 g/dL (33.2-36.2); MEAN CORPUSCULAR VOLUME 90.8 fL (81-97); MEAN PLATELET VOLUME 8.6 fL (7.4-10.4); PLATELET COUNT 178 x10^3/uL (130-400); RED BLOOD COUNT 4.67 x10^6/uL (4.38-5.82); RED CELL DISTRIBUTION WIDTH 14.5 % (9.4-14.8)
[2018-04-20 05:48] LABS: CHLORIDE 109 mmol/L (98-107)
[2018-04-20 05:57] LABS: ALANINE AMINOTRANSFERASE 23 U/L (12-78); ALBUMIN 3.3 g/dL (3.4-5.0); ALKALINE PHOSPHATASE 102 U/L (45-117); ANION GAP 6 mmol/L (5-15); BILIRUBIN,TOTAL 0.2 mg/dL (0.2-1.0); CALCIUM 8.4 mg/dL (8.5-10.1); CREATININE 0.93 mg/dL (0.7-1.3); TOTAL PROTEIN 6.4 g/dL (6.4-8.2)
[2018-04-20] MEDS: ALBUTEROL/IPRATROPIUM 2.5MG/0.5MG, 3 ML NPPB SCH ×4 (06:50→19:47)
[2018-04-20 07:09] LABS: BASOPHILS # (AUTO) 0.04 x10^3/uL (0-0.1); BASOPHILS % (AUTO) 0 % (0-1); EOSINOPHILS % (AUTO) 0 % (1-7); LYMPHOCYTES # (AUTO) 1.66 x10^3/uL (1-3.4); LYMPHOCYTES % (AUTO) 9 % (22-44); MD SCAN; MONOCYTES # (AUTO) 1.59 x10^3/uL (0.2-0.8); MONOCYTES % (AUTO) 9 % (2-9); NEUTROPHILS % (AUTO) 82 % (42-75)
[2018-04-20 07:20] VITALS: BP 143/81
[2018-04-20] MEDS: predniSONE 50MG TABLET PO SCH (09:31)
[2018-04-20] MEDS: TAMSULOSIN 0.4 MG CAP.ER.24H PO SCH (09:31)
[2018-04-20] MEDS: APIXABAN 2.5 MG TABLET PO SCH (09:32)
[2018-04-20] MEDS: METOPROLOL TARTRATE 25 MG TABLET PO SCH (09:32)
[2018-04-20] MEDS: LOSARTAN 25MG TABLET PO SCH (09:32)
[2018-04-20] MEDS: DIGOXIN 0.125 MG TABLET PO SCH (09:32)
[2018-04-20 13:17] VITALS: BP 140/88
[2018-04-20] MEDS: METOPROLOL SUCCINATE 50 MG TAB.ER.24H PO SCH (13:19)
[2018-04-20] MEDS: APIXABAN 5 MG TABLET PO SCH (19:58)
[2018-04-20] MEDS ORDERED: ATORVASTATIN 40 MG TABLET PO SCH (21:00)
[2018-04-20 21:26] VITALS: BP 144/82
[2018-04-21] MEDS: LEVOFLOXACIN/PMX 750MG/150ML 150 ML IV SCH (00:39)
[2018-04-21 02:10] VITALS: BP 137/87
[2018-04-21 04:59] LABS: BASOPHILS # (AUTO) 0.03 x10^3/uL (0-0.1); BASOPHILS % (AUTO) 0 % (0-1); EOSINOPHILS % (AUTO) 0 % (1-7); LYMPHOCYTES % (AUTO) 15 % (22-44); MD NO; MEAN CORPUSCULAR HEMOGLOBIN 29.8 pg (27.5-34.5); MEAN CORPUSCULAR HGB CONC 32.6 g/dL (33.2-36.2); MEAN CORPUSCULAR VOLUME 91.4 fL (81-97); MEAN PLATELET VOLUME 8.6 fL (7.4-10.4); MONOCYTES # (AUTO) 1.41 x10^3/uL (0.2-0.8); MONOCYTES % (AUTO) 11 % (2-9); NEUTROPHILS # (AUTO) 9.55 x10^3/uL (1.8-6.8); NEUTROPHILS % (AUTO) 74 % (42-75); PLATELET COUNT 174 x10^3/uL (130-400); RED BLOOD COUNT 4.31 x10^6/uL (4.38-5.82); RED CELL DISTRIBUTION WIDTH 14.4 % (9.4-14.8)
[2018-04-21 05:03] LABS: ALANINE AMINOTRANSFERASE 31 U/L (12-78); ALBUMIN 3.1 g/dL (3.4-5.0); ANION GAP 3 mmol/L (5-15); CALCIUM 8.1 mg/dL (8.5-10.1); CHLORIDE 109 mmol/L (98-107); CREATININE 0.85 mg/dL (0.7-1.3)
[2018-04-21 05:05] LABS: ALKALINE PHOSPHATASE 85 U/L (45-117); BILIRUBIN,TOTAL 0.3 mg/dL (0.2-1.0); TOTAL PROTEIN 5.7 g/dL (6.4-8.2)
[2018-04-21 05:48] VITALS: BP 120/68
[2018-04-21] MEDS: METOPROLOL SUCCINATE 50 MG TAB.ER.24H PO SCH (05:49)
[2018-04-21] MEDS: ALBUTEROL/IPRATROPIUM 2.5MG/0.5MG, 3 ML NPPB SCH ×3 (06:50→14:45)
[2018-04-21] MEDS ORDERED: GLUCAGON 1 MG IM PRN (07:00)
[2018-04-21] MEDS ORDERED: DEXTROSE 4 GM TAB.CHEW PO PRN (07:00)
[2018-04-21] MEDS ORDERED: DEXTROSE 50%, 50ML SYRINGE IVPush PRN (07:00)
[2018-04-21 07:36] VITALS: BP 165/97
[2018-04-21 08:07] LABS: HEMOGLOBIN A1C 7.7 % (4.2-6.3)
[2018-04-21] MEDS ORDERED: SODIUM CHLORIDE FLUSH 10ML SYR IVF SCH (09:00)
[2018-04-21] MEDS: APIXABAN 5 MG TABLET PO SCH (10:08)
[2018-04-21] MEDS: DIGOXIN 0.125 MG TABLET PO SCH (10:08)
[2018-04-21] MEDS: INSULIN LISPRO 100 UNITS/ML, PEN SQ-INSULIN SCH ×2 (10:08→13:04)
[2018-04-21] MEDS: LOSARTAN 25MG TABLET PO SCH (10:08)
[2018-04-21] MEDS: predniSONE 50MG TABLET PO SCH (10:08)
[2018-04-21] MEDS: TAMSULOSIN 0.4 MG CAP.ER.24H PO SCH (10:09)
[2018-04-21] MEDS ORDERED: methylPREDNISolone SOD SUCC 125 MG/2 ML IVPush SCH (11:30)
[2018-04-21 14:39] VITALS: BP 159/83
[2018-04-22] MEDS ORDERED: FUROSEMIDE 20 MG TABLET PO SCH (09:00)
== END 2018-04-21 16:22 | disposition left against medical advice (07) | DRG 871 ==
LOC: ED 23:04 → EDIP 23:11 → ED 23:15 → 3NW 04-18 00:17 → 5SO 04-18 01:00
PROVIDERS: ADMIT Family Medicine; ATTEND Family Medicine
DX: A41.9 Sepsis, unspecified organism (principal); J15.9 Unspecified bacterial pneumonia; J96.21 Acute and chronic respiratory failure with hypoxia; I50.43 Acute on chronic combined systolic (congestive) and diastolic (congestive) heart failure; J44.1 Chronic obstructive pulmonary disease with (acute) exacerbation; D68.69 Other thrombophilia; J44.0 Chronic obstructive pulmonary disease with (acute) lower respiratory infection; I47.2 Ventricular tachycardia; E87.2 Acidosis; I42.9 Cardiomyopathy, unspecified; I11.0 Hypertensive heart disease with heart failure; I48.2 Chronic atrial fibrillation; F17.200 Nicotine dependence, unspecified, uncomplicated; N40.0 Benign prostatic hyperplasia without lower urinary tract symptoms; T38.0X5A Adverse effect of glucocorticoids and synthetic analogues, initial encounter; I25.10 Atherosclerotic heart disease of native coronary artery without angina pectoris; E11.9 Type 2 diabetes mellitus without complications; E78.5 Hyperlipidemia, unspecified; I48.91 Unspecified atrial fibrillation; Z99.81 Dependence on supplemental oxygen; Z95.810 Presence of automatic (implantable) cardiac defibrillator; Z86.73 Personal history of transient ischemic attack (TIA), and cerebral infarction without residual deficits; Z82.49 Family history of ischemic heart disease and other diseases of the circulatory system; Z79.01 Long term (current) use of anticoagulants; Z95.5 Presence of coronary angioplasty implant and graft; Y92.89 Other specified places as the place of occurrence of the external cause
CPT/HCPCS: 36415; 71046; 80048; 80053; 82040; 82962; 83036; 83605; 83735; 83880; 84145; 84443; 84484; 85025; 87040; 87070; 87205; 93005; 93306; 94640; 96365; 96367; 96375; G0378; J0456; J0696; J1956; J7613; J7620; J1815; J1940; J2920; J2930; J7030; J7050; J7512

== ENCOUNTER 2018-09-11 11:34 | Inpatient (IN) | payer MEDICARE, MEDICAID ==
[~2018-09-11] VITALS: Ht 177.8 cm; Wt 93.3 kg
[2018-09-14 12:38] VITALS: BP 148/80
== END 2018-09-14 18:13 | disposition home or self-care (01) | DRG 291 ==
LOC: ED 13:49 → EDIP 13:50 → ED 13:54 → 5SO 15:54 → 4WST 09-12 18:56
PROVIDERS: ADMIT Internal Medicine; ATTEND Internal Medicine
DX: I11.0 Hypertensive heart disease with heart failure (principal); J18.9 Pneumonia, unspecified organism; J96.21 Acute and chronic respiratory failure with hypoxia; J44.1 Chronic obstructive pulmonary disease with (acute) exacerbation; D68.59 Other primary thrombophilia; J98.11 Atelectasis; J44.0 Chronic obstructive pulmonary disease with (acute) lower respiratory infection; I50.23 Acute on chronic systolic (congestive) heart failure; E11.9 Type 2 diabetes mellitus without complications; E78.5 Hyperlipidemia, unspecified; F17.210 Nicotine dependence, cigarettes, uncomplicated; I48.91 Unspecified atrial fibrillation; Z51.5 Encounter for palliative care; N40.0 Benign prostatic hyperplasia without lower urinary tract symptoms; T38.0X5A Adverse effect of glucocorticoids and synthetic analogues, initial encounter; Z71.6 Tobacco abuse counseling; Z86.73 Personal history of transient ischemic attack (TIA), and cerebral infarction without residual deficits; Z95.810 Presence of automatic (implantable) cardiac defibrillator
CPT/HCPCS: 36415; 71045; 71250; 80053; 82962; 83735; 83880; 84100; 84484; 85025; 87040; 93005; 93306; 94640; 96365; 96366; 96375; G0378; J0696; J1940; J7060; J7620; J1815; J2930; J7512

== ENCOUNTER 2018-12-04 19:22 | Emergency (ER) | payer MEDICARE, MEDICAID ==
[~2018-12-04] VITALS: Ht 177.8 cm; Wt 89.6 kg
[~2018-12-04 19:22] MED LIST changes: +AMOX1TAB12 PO; +BUDE10.2 INH; +FURO40TA6 PO; +GUAI200T37 PO; +METO-264 PO; +POTA10TA5 PO; +TIOT18CA INH
[2018-12-04 19:35] VITALS: BP 175/83
--- NOTE | 2018-12-04 19:41 | NUR ---
BROUGHT IN BY SUZANNA FROM [place]. PER REPORT PATIENT CALLED 911 DUE TO RIGHT EAR PAIN/ HEARING AID STUCK ON HIS EAR. BP WAS ELEVATED UPON EMS ARRIVAL. NO SYMPTOMS. [id number]. PER REPORT PATIENT WAS AT [facility] 3 WEEKS AGO DX WITH CVA? NO DEFICIT.
--- NOTE | 2018-12-04 19:57 | NUR ---
ASSUMED CARE FOR THIS PT
[2018-12-04] MEDS ORDERED: LIDOCAINE 1%-EPI 1:100K, 20ML ONE (20:10)
--- NOTE | 2018-12-04 20:12 | NUR ---
PT POSITIONED TO LEFT SIDE AND LIDO WITH EPI PLACED IN RIGHT EAR.
[2018-12-04] MEDS ORDERED: LIDOCAINE 1%-EPI 1:100K, 50ML INFIL ONE (20:30)
== END 2018-12-04 21:30 | disposition home or self-care (01) ==
LOC: ED 20:05
DX: H61.21 Impacted cerumen, right ear (principal); S09.21XA Traumatic rupture of right ear drum, initial encounter; F17.210 Nicotine dependence, cigarettes, uncomplicated; I48.91 Unspecified atrial fibrillation; J44.9 Chronic obstructive pulmonary disease, unspecified; Z86.73 Personal history of transient ischemic attack (TIA), and cerebral infarction without residual deficits; I10 Essential (primary) hypertension; E11.9 Type 2 diabetes mellitus without complications
CPT/HCPCS: 69210; 93005; 99284; J3490

== ENCOUNTER 2019-01-29 18:33 | Emergency (ER) | payer MEDICARE, MEDICAID ==
[~2019-01-29] VITALS: Ht 177.8 cm; Wt 94.0 kg
[2019-01-29 19:39] VITALS: BP 134/61
--- NOTE | 2019-01-29 19:39 | NUR ---
PT TO ROOM FROM WALL
[2019-01-29] MEDS ORDERED: methylPREDNISolone SOD SUCC 125 MG/2 ML ONE (20:19)
[2019-01-29] MEDS ORDERED: ALBUTEROL SULFATE 2.5 MG/3 ML NPPB ONE (20:30)
[2019-01-29] MEDS ORDERED: ASPIRIN 81 MG TABLET CHEW PO ONE (20:30)
[2019-01-29] MEDS ORDERED: methylPREDNISolone SOD SUCC 125 MG/2 ML IV ONE (20:30)
[2019-01-29 20:35] LABS: BASOPHILS # (AUTO) 0.07 x10^3/uL (0-0.1); BASOPHILS % (AUTO) 1 % (0-1); EOSINOPHILS # (AUTO) 0.29 x10^3/uL (0-0.4); EOSINOPHILS % (AUTO) 2 % (1-7); LYMPHOCYTES % (AUTO) 21 % (22-44); MD NO; MEAN CORPUSCULAR HEMOGLOBIN 28.8 pg (27.5-34.5); MEAN CORPUSCULAR HGB CONC 31.7 g/dL (33.2-36.2); MEAN CORPUSCULAR VOLUME 90.8 fL (81-97); MEAN PLATELET VOLUME 8.9 fL (7.4-10.4); MONOCYTES # (AUTO) 1.19 x10^3/uL (0.2-0.8); MONOCYTES % (AUTO) 9 % (2-9); NEUTROPHILS % (AUTO) 68 % (42-75); PLATELET COUNT 173 x10^3/uL (130-400); RED BLOOD COUNT 5.56 x10^6/uL (4.38-5.82)
[2019-01-29 20:45] LABS: ALANINE AMINOTRANSFERASE 31 U/L (12-78); ALBUMIN 3.9 g/dL (3.4-5.0); ANION GAP 5 mmol/L (5-15); CALCIUM 8.8 mg/dL (8.5-10.1); CHLORIDE 109 mmol/L (98-107); CREATININE 1.04 mg/dL (0.7-1.3)
[2019-01-29 20:49] LABS: ALKALINE PHOSPHATASE 120 U/L (45-117); BILIRUBIN,TOTAL 0.6 mg/dL (0.2-1.0); TOTAL PROTEIN 7.5 g/dL (6.4-8.2); TROPONIN I < 0.015 ng/mL (0.000-0.045)
--- NOTE | 2019-01-29 21:12 | NUR ---
LEFT AND RIGHT SIDED CP THAT STARTED SOME TIME TODAY, PT DOESNT REMEMBER WHEN. PAIN RATED 7/10. DENIES N/V. WORSE WITH COUGHING. DENIES RADIATING PAIN OR ANY OTHER SYMPTOMS. [facility] GAVE 324 ASA, SL NITRO WITH RELIEF. HX OF COPD AND WEARS 4L NC ALL THE TIME.
--- NOTE | 2019-01-29 21:13 | NUR ---
PT FOR RECHECK
--- NOTE | 2019-01-29 21:54 | NUR ---
PT REQUESTING TO LEAVE AMA. PAPERWORK FILLED OUT, DISCHARGE INSTRUCTIONS DISCUSSED AND PT WALKED TO DISCHARGE DESK WITH STEADY GAIT.
== END 2019-01-29 21:56 | disposition left against medical advice (07) ==
LOC: ED 20:57
DX: J44.1 Chronic obstructive pulmonary disease with (acute) exacerbation (principal); E11.9 Type 2 diabetes mellitus without complications; I11.0 Hypertensive heart disease with heart failure; I50.9 Heart failure, unspecified; I25.10 Atherosclerotic heart disease of native coronary artery without angina pectoris; J44.9 Chronic obstructive pulmonary disease, unspecified; I48.91 Unspecified atrial fibrillation; Z86.73 Personal history of transient ischemic attack (TIA), and cerebral infarction without residual deficits
CPT/HCPCS: 36415; 71045; 80053; 83880; 84484; 85025; 93005; 94640; 96374; 99284; J2930; J7613

== ENCOUNTER 2019-05-07 06:13 | Inpatient (IN) | payer MEDICARE, MEDICAID ==
[~2019-05-07] VITALS: Ht 177.8 cm; Wt 92.0 kg
[~2019-05-07 06:13] MED LIST changes: -DIGO125T PO; +DIGO125T85 PO; +SIMV40TA20 PO; -SIMV40TA3 PO
--- NOTE | 2019-05-07 06:36 | NUR ---
PT ARRIVES BY [facility] THIS EVENING FOR SOB. PT STATES HE HAS BEEN HAVING INCREASING ORTHOPNEA FOR SEVERAL DAYS. PT WITH HISTORY OF CHF, HTN, COPD, PACER. PER EMS, PT GIVEN 2 ALBUTEROL TREATMENTS IN ROUTE TO [facility] ED. PT CHANGED INTO GOWN AND PLACED INTO GURNEY UPON ARRIVAL. PT ATTACHED TO CARDIAC AND VS MONITORS. VSS AT THIS TIME. PACED RHYTHM OBSERVED ON MONITOR. EKG PERFORMED AT BS BY RECREATIONAL SPORTS DIRECTOR. PT PLACED ON SUPPLEMENTAL OXYGEN AND SATTING WELL. PT DENIES ANY PAIN AT THIS TIME. CALL LIGHT IS WITHIN REACH. AWAITING ERP.
--- NOTE | 2019-05-07 06:38 | NUR ---
ERP AT FOR PT HISTORY AND ASSESSMENT AT THIS TIME.
[2019-05-07] MEDS ORDERED: SODIUM CHLORIDE FLUSH 10ML SYR IVF ONE (07:00)
--- NOTE | 2019-05-07 07:05 | NUR ---
REPORT FROM RANJIT MCMANUS. PT CARE RESPONSIBILITIES ASSUMED.
[2019-05-07 07:47] LABS: BASOPHILS # (AUTO) 0.02 x10^3/uL (0-0.1); BASOPHILS % (AUTO) 0 % (0-1); EOSINOPHILS # (AUTO) 0.11 x10^3/uL (0-0.4); EOSINOPHILS % (AUTO) 1 % (1-7); LYMPHOCYTES % (AUTO) 14 % (22-44); MD NO; MEAN CORPUSCULAR HEMOGLOBIN 29.1 pg (27.5-34.5); MEAN CORPUSCULAR HGB CONC 32.4 g/dL (33.2-36.2); MEAN CORPUSCULAR VOLUME 89.7 fL (81-97); MEAN PLATELET VOLUME 8.1 fL (7.4-10.4); MONOCYTES % (AUTO) 7 % (2-9); NEUTROPHILS # (AUTO) 8.52 x10^3/uL (1.8-6.8); NEUTROPHILS % (AUTO) 78 % (42-75); PLATELET COUNT 185 x10^3/uL (130-400); RED BLOOD COUNT 4.82 x10^6/uL (4.38-5.82); RED CELL DISTRIBUTION WIDTH 16.2 % (9.4-14.8)
[2019-05-07] MEDS ORDERED: FUROSEMIDE 20 MG/2 ML ONE (07:47)
[2019-05-07 07:56] LABS: ALANINE AMINOTRANSFERASE 19 U/L (12-78); ANION GAP 6 mmol/L (5-15); CALCIUM 9.2 mg/dL (8.5-10.1); CHLORIDE 110 mmol/L (98-107); CREATININE 0.72 mg/dL (0.7-1.3)
[2019-05-07 08:00] LABS: ALKALINE PHOSPHATASE 99 U/L (45-117); BILIRUBIN,TOTAL 0.5 mg/dL (0.2-1.0); TOTAL PROTEIN 7.4 g/dL (6.4-8.2); TROPONIN I < 0.015 ng/mL (0.000-0.045)
[2019-05-07] MEDS ORDERED: FUROSEMIDE 20 MG/2 ML IV ONE (08:00)
[2019-05-07 08:45] LABS: RAPID INFLUENZA A Negative (Negative); RAPID INFLUENZA B Negative (Negative)
[2019-05-07] MEDS ORDERED: ONDANSETRON ODT 4 MG PO PRN (09:00)
[2019-05-07] MEDS ORDERED: ALBUTEROL SULFATE 2.5 MG/3 ML NEB PRN (09:00)
[2019-05-07] MEDS ORDERED: morphine SULFATE 10 MG/ML, 1ML IVPush PRN (09:00)
[2019-05-07] MEDS ORDERED: IPRATROPIUM 0.5 MG/2.5 ML INHA HHN SCH (09:00)
[2019-05-07] MEDS ORDERED: ONDANSETRON 2MG/ML, 2ML IVPush PRN (09:00)
[2019-05-07] MEDS ORDERED: ALBUTEROL SULFATE 2.5 MG/3 ML HHN SCH (09:00)
[2019-05-07] MEDS ORDERED: ACETAMINOPHEN 325 MG TABLET PO PRN (09:00)
[2019-05-07] MEDS ORDERED: hydrALAzine 20 MG/ML, 1ML IVPush PRN (09:00)
[2019-05-07 09:19] LABS: HCT (SEDRATE) 43.2 % (39.2-51.8)
--- NOTE | 2019-05-07 10:18 | NUR ---
REPORT TO RECEIVING [employer] ADMISSIONS REPRESENTATIVE. PT RETURNED FROM CT. UPDATED ON PLAN OF CARE. VERBALIZES UNDERSTANDING, DENIES ANY FURTHER NEEDS OR CONCERNS. CALL LIGHT IN REACH.
[2019-05-07] MEDS ORDERED: OMNIPAQUE 350 MG/ML, 100ML BOTTLE ONE (10:24)
--- NOTE | 2019-05-07 10:53 | NUR ---
PT BEING TAKEN UPSTAIRS AT THIS TIME.
[2019-05-07 11:14] VITALS: BP 177/95
[2019-05-07] MEDS ORDERED: ALBUTEROL/IPRATROPIUM 2.5MG/0.5MG, 3 ML NPPB PRN (11:30)
[2019-05-07] MEDS ORDERED: ALBUTEROL/IPRATROPIUM 2.5MG/0.5MG, 3 ML NPPB SCH (11:30)
[2019-05-07] MEDS ORDERED: BUDESONIDE 0.5 MG/2 ML INHA INH SCH (11:30)
[2019-05-07] MEDS: LOSARTAN 50MG TABLET PO SCH (13:05)
[2019-05-07] MEDS: TAMSULOSIN 0.4 MG CAP.ER.24H PO SCH (13:05)
[2019-05-07] MEDS: MONTELUKAST 10 MG TABLET PO SCH (13:05)
[2019-05-07] MEDS: APIXABAN 2.5 MG TABLET PO SCH ×2 (13:05→20:18)
[2019-05-07] MEDS: GUAIFENESIN 200 MG TABLET PO SCH ×3 (13:05→20:18)
[2019-05-07] MEDS: SENNA/DOCUSATE TABLET PO SCH (13:05)
[2019-05-07 14:10] VITALS: BP 160/82
[2019-05-07] MEDS ORDERED: ALBUTEROL HFA 90 MCG/SPRAY INH PRN (15:30)
[2019-05-07] MEDS: METOPROLOL TARTRATE 25 MG TAB PO SCH (17:38)
[2019-05-07] MEDS: FUROSEMIDE 40 MG/4 ML IV SCH (17:39)
[2019-05-07] MEDS: SIMVASTATIN 5 MG TABLET PO SCH (20:19)
[2019-05-07] MEDS ORDERED: BUDESONIDE 0.5 MG/2 ML INHA HHN SCH (21:00)
[2019-05-07 22:47] VITALS: BP 110/67
[2019-05-08 02:00] VITALS: BP 119/69
[2019-05-08 05:24] LABS: BASOPHILS # (AUTO) 0.02 x10^3/uL (0-0.1); BASOPHILS % (AUTO) 0 % (0-1); EOSINOPHILS # (AUTO) 0.28 x10^3/uL (0-0.4); EOSINOPHILS % (AUTO) 3 % (1-7); LYMPHOCYTES # (AUTO) 1.98 x10^3/uL (1-3.4); LYMPHOCYTES % (AUTO) 20 % (22-44); MD NO; MEAN CORPUSCULAR HEMOGLOBIN 28.7 pg (27.5-34.5); MEAN CORPUSCULAR HGB CONC 32.1 g/dL (33.2-36.2); MEAN CORPUSCULAR VOLUME 89.4 fL (81-97); MEAN PLATELET VOLUME 8.4 fL (7.4-10.4); MONOCYTES # (AUTO) 0.95 x10^3/uL (0.2-0.8); MONOCYTES % (AUTO) 9 % (2-9); NEUTROPHILS # (AUTO) 6.88 x10^3/uL (1.8-6.8); NEUTROPHILS % (AUTO) 68 % (42-75); PLATELET COUNT 194 x10^3/uL (130-400); RED BLOOD COUNT 4.93 x10^6/uL (4.38-5.82); RED CELL DISTRIBUTION WIDTH 16.5 % (9.4-14.8)
[2019-05-08 05:34] LABS: ALANINE AMINOTRANSFERASE 19 U/L (12-78); ALBUMIN 3.9 g/dL (3.4-5.0); ANION GAP 6 mmol/L (5-15); CALCIUM 9.5 mg/dL (8.5-10.1); CHLORIDE 108 mmol/L (98-107)
[2019-05-08 05:45] LABS: ALKALINE PHOSPHATASE 107 U/L (45-117); BILIRUBIN,TOTAL 0.6 mg/dL (0.2-1.0); CREATININE 0.83 mg/dL (0.7-1.3); TOTAL PROTEIN 7.5 g/dL (6.4-8.2)
[2019-05-08] MEDS: METOPROLOL TARTRATE 25 MG TAB PO SCH ×2 (06:33→17:02)
[2019-05-08] MEDS: GUAIFENESIN 200 MG TABLET PO SCH ×4 (06:34→20:37)
[2019-05-08 08:00] VITALS: BP 97/44
[2019-05-08] MEDS: MONTELUKAST 10 MG TABLET PO SCH (08:42)
[2019-05-08] MEDS: FUROSEMIDE 40 MG/4 ML IV SCH ×2 (08:42→17:01)
[2019-05-08] MEDS: LOSARTAN 50MG TABLET PO SCH (08:43)
[2019-05-08] MEDS: APIXABAN 2.5 MG TABLET PO SCH ×2 (08:43→20:37)
[2019-05-08] MEDS: TAMSULOSIN 0.4 MG CAP.ER.24H PO SCH (08:43)
[2019-05-08] MEDS: SENNA/DOCUSATE TABLET PO SCH (08:43)
[2019-05-08 12:32] VITALS: BP 108/66
[2019-05-08] MEDS: methylPREDNISolone SOD SUCC 40 MG/ML IV SCH ×2 (14:17→20:37)
[2019-05-08 18:53] VITALS: BP 109/66
[2019-05-08] MEDS: SIMVASTATIN 5 MG TABLET PO SCH (20:37)
[2019-05-08] MEDS ORDERED: ALBUTEROL/IPRATROPIUM 2.5MG/0.5MG, 3 ML NPPB SCH (21:00)
[2019-05-09 00:28] VITALS: BP 113/61
[2019-05-09 05:49] LABS: ANION GAP 10 mmol/L (5-15); CALCIUM 9.3 mg/dL (8.5-10.1); CHLORIDE 104 mmol/L (98-107); CREATININE 0.96 mg/dL (0.7-1.3)
[2019-05-09] MEDS: methylPREDNISolone SOD SUCC 40 MG/ML IV SCH (05:50)
[2019-05-09] MEDS: GUAIFENESIN 200 MG TABLET PO SCH (05:50)
[2019-05-09] MEDS: METOPROLOL TARTRATE 25 MG TAB PO SCH (05:51)
[2019-05-09] MEDS: MONTELUKAST 10 MG TABLET PO SCH (07:48)
[2019-05-09] MEDS: SENNA/DOCUSATE TABLET PO SCH ×2 (07:48→07:49)
[2019-05-09] MEDS: FUROSEMIDE 40 MG/4 ML IV SCH (07:48)
[2019-05-09] MEDS: TAMSULOSIN 0.4 MG CAP.ER.24H PO SCH (07:49)
[2019-05-09] MEDS: APIXABAN 2.5 MG TABLET PO SCH (07:49)
[2019-05-09] MEDS: LOSARTAN 50MG TABLET PO SCH (07:49)
[2019-05-09 07:50] VITALS: BP 126/68
== END 2019-05-09 08:54 | disposition left against medical advice (07) | DRG 190 ==
LOC: ED 06:29 → SUATTDRO 08:21 → EDIP 08:42 → ICU 10:58 → 4WST 05-08 12:05
PROVIDERS: ADMIT Internal Medicine; ATTEND Internal Medicine
DX: J44.1 Chronic obstructive pulmonary disease with (acute) exacerbation (principal); J96.21 Acute and chronic respiratory failure with hypoxia; I50.43 Acute on chronic combined systolic (congestive) and diastolic (congestive) heart failure; J98.11 Atelectasis; I42.0 Dilated cardiomyopathy; I11.0 Hypertensive heart disease with heart failure; D72.829 Elevated white blood cell count, unspecified; E11.9 Type 2 diabetes mellitus without complications; E78.5 Hyperlipidemia, unspecified; I27.20 Pulmonary hypertension, unspecified; I48.91 Unspecified atrial fibrillation; N40.0 Benign prostatic hyperplasia without lower urinary tract symptoms; Z72.0 Tobacco use; Z82.49 Family history of ischemic heart disease and other diseases of the circulatory system; Z82.5 Family history of asthma and other chronic lower respiratory diseases; Z86.73 Personal history of transient ischemic attack (TIA), and cerebral infarction without residual deficits; Z95.0 Presence of cardiac pacemaker; Z99.81 Dependence on supplemental oxygen
CPT/HCPCS: 36415; 71045; 71275; 80048; 80053; 83880; 84443; 84484; 85025; 85651; 87070; 87081; 87205; 87400; 93005; 94640; 96374; G0378; J1940; J7626; Q9967; J2920

== ENCOUNTER 2019-05-10 15:53 | Emergency (ER) | payer MEDICARE, MEDICAID ==
[~2019-05-10] VITALS: Ht 177.8 cm; Wt 91.6 kg
--- NOTE | 2019-05-10 16:03 | NUR ---
PT BIB [facility]. PT CALLED 911 BECAUSE "I WAS SOB AND MY O2 CONCENTRATER WASNT WORKING". PT CURRENTLY 99% ON 4 LITERS VIA NC. PT RX IS 4 LITERS. HX: COPD, HTN, [place], STROKE. PT IS A POOR HISTORIAN AND IS HARD OF HEARING PT IS CONNECTED TO CUSTOMER SERVICE ADMINISTRATOR AND PULSE OX. EKG COMPELTE.
[2019-05-10] MEDS ORDERED: SODIUM CHLORIDE FLUSH 10ML SYR IVF ONE (16:30)
[2019-05-10 16:33] LABS: BASOPHILS # (AUTO) 0.04 x10^3/uL (0-0.1); BASOPHILS % (AUTO) 0 % (0-1); EOSINOPHILS # (AUTO) 0.02 x10^3/uL (0-0.4); EOSINOPHILS % (AUTO) 0 % (1-7); LYMPHOCYTES # (AUTO) 1.94 x10^3/uL (1-3.4); LYMPHOCYTES % (AUTO) 15 % (22-44); MD NO; MEAN CORPUSCULAR HEMOGLOBIN 28.9 pg (27.5-34.5); MEAN CORPUSCULAR HGB CONC 32.5 g/dL (33.2-36.2); MEAN CORPUSCULAR VOLUME 88.9 fL (81-97); MEAN PLATELET VOLUME 8.4 fL (7.4-10.4); MONOCYTES # (AUTO) 1.35 x10^3/uL (0.2-0.8); MONOCYTES % (AUTO) 10 % (2-9); NEUTROPHILS # (AUTO) 9.97 x10^3/uL (1.8-6.8); NEUTROPHILS % (AUTO) 75 % (42-75); PLATELET COUNT 195 x10^3/uL (130-400); RED BLOOD COUNT 4.86 x10^6/uL (4.38-5.82); RED CELL DISTRIBUTION WIDTH 16.3 % (9.4-14.8)
[2019-05-10 16:34] LABS: INTERNATIONAL NORMALIZED RATIO 1.03 (0.93-1.1); PROTHROMBIN TIME 10.9 Seconds (9.6-11.5)
--- NOTE | 2019-05-10 16:35 | NUR ---
PT RESTING IN [facility]. VSS. NAD
[2019-05-10 16:36] LABS: ALANINE AMINOTRANSFERASE 23 U/L (12-78); ALBUMIN 3.8 g/dL (3.4-5.0); ANION GAP 6 mmol/L (5-15); CALCIUM 8.9 mg/dL (8.5-10.1); CHLORIDE 111 mmol/L (98-107); CREATININE 0.97 mg/dL (0.7-1.3)
[2019-05-10 16:40] LABS: ALKALINE PHOSPHATASE 95 U/L (45-117); BILIRUBIN,TOTAL 0.2 mg/dL (0.2-1.0); TOTAL PROTEIN 7.1 g/dL (6.4-8.2); TROPONIN I < 0.015 ng/mL (0.000-0.045)
--- NOTE | 2019-05-10 17:50 | NUR ---
PT PLACED ON OWN O2 CONCENTRATOR. PT SAT AT 97%. PT TO BE DC
[2019-05-10 17:51] VITALS: BP 127/72
== END 2019-05-10 18:14 | disposition home or self-care (01) ==
LOC: ED 17:06
DX: J44.1 Chronic obstructive pulmonary disease with (acute) exacerbation (principal); E78.5 Hyperlipidemia, unspecified; I11.0 Hypertensive heart disease with heart failure; I50.20 Unspecified systolic (congestive) heart failure; E11.9 Type 2 diabetes mellitus without complications; I48.91 Unspecified atrial fibrillation; F17.200 Nicotine dependence, unspecified, uncomplicated; Z95.0 Presence of cardiac pacemaker; Z86.73 Personal history of transient ischemic attack (TIA), and cerebral infarction without residual deficits
CPT/HCPCS: 36415; 71045; 80053; 80162; 83880; 84484; 85025; 85610; 85730; 93005; 99285

== ENCOUNTER 2019-06-09 23:53 | Emergency (ER) | payer MEDICARE, MEDICAID ==
[~2019-06-09] VITALS: Ht 175.3 cm; Wt 97.7 kg
--- NOTE | 2019-06-10 00:16 | NUR ---
PT BIB EMS FROM [place]. PT REPORTS CP AND SOB STARTING THIS AFTERNOON, DENIES RADIAITON OF PAIN. PT HAS HAD COUGH X2 WEEKS. REPORTS CHEST PRESSURE 1/10. EMS PROVIDED 1 TAB NITRO AND 324 ASA IN TRANSIT. PT HAS CHF AND COPD, ALONG WITH EXTENSIVE CARDIAC HX. TESTED APPX X2 WEEKS AGO FOR COVID, CAME BACK NEGATIVE. PT USES 2L NC BASELINE AT HOME. PT CONENCTED TO ALL MONTIORING, EKG PERFORMED ON [place]. CALL LIGHT WITHIN REACH, ALL SAFETY MEASURES IN PLACE.
[2019-06-10] MEDS ORDERED: SODIUM CHLORIDE FLUSH 10ML SYR IVF ONE (00:30)
[2019-06-10 00:39] LABS: BASOPHILS # (AUTO) 0.05 x10^3/uL (0-0.1); BASOPHILS % (AUTO) 0 % (0-1); EOSINOPHILS # (AUTO) 0.17 x10^3/uL (0-0.4); EOSINOPHILS % (AUTO) 1 % (1-7); LYMPHOCYTES # (AUTO) 1.89 x10^3/uL (1-3.4); LYMPHOCYTES % (AUTO) 14 % (22-44); MD NO; MEAN CORPUSCULAR HEMOGLOBIN 28.8 pg (27.5-34.5); MEAN CORPUSCULAR HGB CONC 32.3 g/dL (33.2-36.2); MEAN CORPUSCULAR VOLUME 89.1 fL (81-97); MONOCYTES # (AUTO) 1.19 x10^3/uL (0.2-0.8); MONOCYTES % (AUTO) 9 % (2-9); NEUTROPHILS # (AUTO) 10.25 x10^3/uL (1.8-6.8); NEUTROPHILS % (AUTO) 76 % (42-75); PLATELET COUNT 198 x10^3/uL (130-400); RED BLOOD COUNT 4.81 x10^6/uL (4.38-5.82); RED CELL DISTRIBUTION WIDTH 14.5 % (9.4-14.8)
[2019-06-10 00:51] LABS: ALANINE AMINOTRANSFERASE 29 U/L (12-78); ALBUMIN 3.6 g/dL (3.4-5.0); ANION GAP 7 mmol/L (5-15); CHLORIDE 110 mmol/L (98-107); CREATININE 0.78 mg/dL (0.7-1.3)
[2019-06-10 00:56] LABS: ALKALINE PHOSPHATASE 112 U/L (45-117); BILIRUBIN,TOTAL 0.4 mg/dL (0.2-1.0); TOTAL PROTEIN 7.1 g/dL (6.4-8.2); TROPONIN I < 0.015 ng/mL (0.000-0.045)
--- NOTE | 2019-06-10 01:13 | NUR ---
BREAK RN: ERP AT BEDSIDE FOR RE-EVALUATION.
--- NOTE | 2019-06-10 03:06 | NUR ---
TRANSFER WITH [facility] SET UP FOR 0800
--- NOTE | 2019-06-10 04:40 | NUR ---
PT PROVIDED SANDWICH AND WATER.
[2019-06-10 05:46] VITALS: BP 145/94
--- NOTE | 2019-06-10 05:47 | NUR ---
PT RESTING ON GURNEY WITH EYES CLOSED, RESPIRATIONS EVEN AND NONLABORED. CALL LIGHT WITHIN REACH, SPO2 IN PLACE.
--- NOTE | 2019-06-10 06:48 | NUR ---
Bedside report received from Keri RN, pt care transferred to Ortega CHURCH at this time. Pt resting in gurney, P/W/D, NAD, RESP WNL, call light on lap, WCTM
--- NOTE | 2019-06-10 07:40 | NUR ---
Pt resting in [place], P/W/D, NAD, RESP WNL, call light on lap, WCTM. WAITING FOR [facility] TO TRANSFER HOME
== END 2019-06-10 08:39 | disposition home or self-care (01) ==
LOC: ED 06-10 01:26
DX: I48.20 Chronic atrial fibrillation, unspecified (principal); J43.9 Emphysema, unspecified; R06.02 Shortness of breath; R07.9 Chest pain, unspecified; I11.0 Hypertensive heart disease with heart failure; I50.20 Unspecified systolic (congestive) heart failure; E11.9 Type 2 diabetes mellitus without complications; E78.5 Hyperlipidemia, unspecified; Z86.73 Personal history of transient ischemic attack (TIA), and cerebral infarction without residual deficits; F17.200 Nicotine dependence, unspecified, uncomplicated; Z95.0 Presence of cardiac pacemaker
CPT/HCPCS: 36415; 71045; 80053; 83880; 84484; 85025; 93005; 99285